=== PATIENT | female | born 1965 | race Caucasian/White ===

== ENCOUNTER 2024-06-16 07:44 | Inpatient (IN) | payer OTHER ==
[~2024-06-16] VITALS: Ht 160 cm; Wt 49.9 kg
[2024-06-16] MEDS: MORPHINE SULFATE 4 MG/ML INJ (FOR IV/IM USE) IV ONE ×2 (08:46→09:39)
[2024-06-16 11:22] LABS: HEMOGLOBIN 11.9 g/dL (12.0-16.0); MEAN CORPUSCULAR HEMOGLOBIN 31.1 pg (28.0-32.0); MEAN CORPUSCULAR HGB CONC 32.1 g/dL (31.0-37.0); MEAN CORPUSCULAR VOLUME 96.9 fL (81.0-99.0); PLATELET 368 x1000/uL (130-400); RED BLOOD CELL COUNT 3.82 mill/uL (4.2-5.4); RED CELL DISTRIBUTION WIDTH 13.4 % (11.6-14.6); WHITE BLOOD COUNT 10.4 x1000/uL (4.5-11.0)
[2024-06-16 11:29] LABS: CHLORIDE 116 mEq/L (98-107); POTASSIUM 4.4 mEq/L (3.5-5.1); SODIUM 140 mEq/L (136-145)
[2024-06-16 11:30] LABS: CARBON DIOXIDE 21 mEq/L (21-32)
[2024-06-16 11:31] LABS: CALCIUM 8.2 mg/dL (8.7-10.4)
[2024-06-16 11:33] LABS: INR 0.9; PARTIAL THROMBOPLASTIN TIME 22.8 sec (23.4-31.0)
[2024-06-16 11:35] LABS: CREATININE 0.7 mg/dL (0.6-1.0); GLUCOSE 87 mg/dL (70-105)
[2024-06-16 11:36] LABS: UREA NITROGEN BLOOD 14 mg/dL (9-23)
[2024-06-16] MEDS: HYDROMORPHONE HCL/PF 2MG/ML INJ IV NR ×2 (11:47→22:56)
[2024-06-16] MEDS ORDERED: GUAIFENESIN 200MG/10ML SUGAR FREE UDC PO PRN (13:15)
[2024-06-16] MEDS ORDERED: DOCUSATE SODIUM 100MG CAPSULE PO PRN (13:15)
[2024-06-16] MEDS ORDERED: ACETAMINOPHEN 650MG/20.3ML UDC GT PRN ×2 (13:15)
[2024-06-16] MEDS ORDERED: CLONIDINE 0.1MG TABLET PO PRN (13:15)
[2024-06-16] MEDS ORDERED: MAGNESIUM/ALUMINUM HYDROXIDE/SIMETHICONE 30ML UDC PO PRN (13:15)
[2024-06-16] MEDS ORDERED: IPRATROPIUM/ALBUTEROL 0.5-3(2.5)MG/3ML NEB HHN PRN (13:15)
[2024-06-16] MEDS ORDERED: ONDANSETRON HCL 4MG/2ML INJ IV PRN (13:15)
[2024-06-16] MEDS: MORPHINE SULFATE 2 MG/ML INJ (NOT FOR IM USE) IV PRN (14:09)
[2024-06-16] MEDS ORDERED: OMEP20CA14 PO (14:27)
[2024-06-16] MEDS ORDERED: LISI10TA26 PO (14:27)
[2024-06-16] MEDS: HYDROCODONE/ACETAMINOPHEN 7.5/325MG TABLET PO PRN (15:30)
[2024-06-16] MEDS: OMEPRAZOLE 20MG CAPSULE EXTENDED RELEASE PO SCH (15:31)
[2024-06-16] MEDS: LISINOPRIL 10MG TABLET PO SCH (15:32)
[2024-06-16 16:37] LABS: TRIGLYCERIDE 144 mg/dL (0-150)
[2024-06-16 16:38] LABS: LACTATE DEHYDROGENASE 156 IU/L (120-246); LDL CHOLESTEROL 73 mg/dL (5-100)
[2024-06-16 16:39] LABS: ALANINE AMINOTRANSFERASE < 7 IU/L (10-49); ALBUMIN 3.2 g/dL (3.2-4.8); ASPARTATE AMINOTRANSFERASE 19 IU/L (<34); BILIRUBIN TOTAL 0.3 mg/dL (0.1-1.0); CHOLESTEROL 143 mg/dL (<200); CREATINE KINASE 49 IU/L (34-145); HDL CHOLESTEROL 49 mg/dL (>65); PHOSPHORUS 3.9 mg/dL (2.5-4.9); PROTEIN TOTAL 4.4 g/dL (6.0-8.3)
[2024-06-16 16:41] LABS: T4 FREE 0.89 ng/dL (0.89-1.76); THYROID STIMULATING HORMONE 6.38 uIU/mL (0.55-4.78)
[2024-06-16 16:46] LABS: BILIRUBIN DIRECT < 0.1 mg/dL (<=3.0); TROPONIN I HIGH SENSITIVITY < 4 ng/L (3.0-34)
[2024-06-16 17:45] VITALS: BP 137/81; PULSE 80; RESP 16; TEMP 97.3
[2024-06-16] MEDS: MAGNESIUM 2 G PREMIX 50 ML IV NR (19:59)
[2024-06-16 20:00] VITALS: BP_SYST 127; BP_SYST 137; BP_DIAS 76; BP_DIAS 81; PULSE 80; PULSE 83; RESP 18; RESP 19; TEMP 97.3; TEMP 98.1
[2024-06-16] MEDS: MORPHINE SULFATE 2 MG/ML INJ (NOT FOR IM USE) IV NR (20:33)
[2024-06-16] MEDS ORDERED: ALBU6.7H15 INH (20:37)
[2024-06-16] MEDS ORDERED: COLE1TAB2 PO (20:37)
[2024-06-16] MEDS ORDERED: VORT20TA MT (20:37)
[2024-06-16] MEDS ORDERED: ATEN-42 MT (20:37)
[2024-06-16] MEDS ORDERED: AMPH10TA MT (20:37)
[2024-06-16] MEDS ORDERED: TEMA15CA MT (20:37)
[2024-06-17] VITALS: BP 128/78; PULSE 90; RESP 19; TEMP 98.8
[2024-06-17 01:09] LABS: CREATINE KINASE 38 IU/L (34-145)
[2024-06-17] MEDS: MORPHINE SULFATE 4 MG/ML INJ (FOR IV/IM USE) IV PRN (01:32)
[2024-06-17 01:42] LABS: CLARITY URINE CLEAR (CLEAR); COLOR URINE YELLOW (YELLOW); GLUCOSE URINE NEGATIVE (NEGATIVE); KETONES URINE TRACE (NEGATIVE); LEUKOCYTE ESTERASE URINE NEGATIVE (NEGATIVE); NITRITE URINE NEGATIVE (NEGATIVE); OCCULT BLOOD URINE NEGATIVE (NEGATIVE); PH URINE 6.5 (4.5-8.0); PROTEIN URINE NEGATIVE (NEGATIVE); SPECIFIC GRAVITY URINE 1.016 (1.005-1.030); UROBILINOGEN URINE 0.2 E.U./dL (0.2-1.0)
[2024-06-17 01:53] LABS: *AMPHETAMINES SCREEN URINE PRESUMPTIVE POSITIVE (NEGATIVE); *BARBITURATES SCREEN URINE NEGATIVE (NEGATIVE); *BENZODIAZEPINES SCREEN URINE NEGATIVE (NEGATIVE); *COCAINE SCREEN URINE NEGATIVE (NEGATIVE); CANNABINOID URINE SCREEN NEGATIVE (NEGATIVE); METHADONE URINE SCREEN NEGATIVE (NEGATIVE); OPIATES URINE SCREEN PRESUMPTIVE POSITIVE (NEGATIVE); PHENCYCLIDINE URINE SCREEN NEGATIVE (NEGATIVE)
[2024-06-17 04:00] VITALS: BP 106/74; PULSE 84; RESP 19; TEMP 96.7
[2024-06-17 06:39] LABS: BASOPHILS % 0.6 % (0.0-2.0); EOSINOPHILS % 5.1 % (0.0-5.0); HEMATOCRIT. 35.5 % (36.0-48.0); HEMOGLOBIN. 11.6 g/dL (12.0-16.0); LYMPHOCYTES % 18.1 % (20.0-50.0); MEAN CORPUSCULAR HGB CONC 32.7 g/dL (31.0-37.0); MEAN CORPUSCULAR VOLUME 94.9 fL (81.0-99.0); MEAN PLATELET VOLUME 7.8 fl (7.4-10.4); MONOCYTES % 7.2 % (2.0-8.0); PLATELET 334 x1000/uL (130-400); RED BLOOD CELL COUNT 3.75 mill/uL (4.2-5.4); RED CELL DISTRIBUTION WIDTH 13.1 % (11.6-14.6); WHITE BLOOD COUNT 7.5 x1000/uL (4.5-11.0)
[2024-06-17 06:46] LABS: CALCIUM 8.3 mg/dL (8.7-10.4); CARBON DIOXIDE 20 mEq/L (21-32); CHLORIDE 113 mEq/L (98-107); SODIUM 140 mEq/L (136-145)
[2024-06-17 06:53] LABS: CREATININE 0.5 mg/dL (0.6-1.0); GLUCOSE 105 mg/dL (70-105); UREA NITROGEN BLOOD 12 mg/dL (9-23)
[2024-06-17 08:00] VITALS: BP 106/68; PULSE 84; RESP 19; TEMP 98.1
[2024-06-17] MEDS ORDERED: POLYMYXIN B SULFATE 500000 UNITS/VIAL ONE (09:44)
[2024-06-17] MEDS ORDERED: VANCOMYCIN HCL 1GM VIAL ONE (09:44)
[2024-06-17] MEDS ORDERED: LIDOCAINE HCL/EPINEPHRINE 1%-EPI 1:100,000 20 ML VIAL ONE (09:44)
[2024-06-17] MEDS ORDERED: SKIN ADHESIVE 0.7 GM EA TOP ONE ×2 (11:39)
[2024-06-17 12:00] VITALS: BP 122/90; PULSE 94; RESP 19; TEMP 97.5
[2024-06-17] MEDS ORDERED: PROPOFOL 200MG/20ML VIAL IV ONE (12:42)
[2024-06-17] MEDS ORDERED: LIDOCAINE HCL 1% 10 MG/ML 10ML VIAL ONE (12:42)
[2024-06-17] MEDS ORDERED: FENTANYL CITRATE/PF 50MCG/ML 2ML VIAL ONE ×2 (12:43→13:46)
[2024-06-17] MEDS ORDERED: MIDAZOLAM HCL 2 MG/2 ML VIAL ONE (12:43)
[2024-06-17] MEDS ORDERED: DEXAMETHASONE 4MG/ML 1ML VIAL ONE (13:05)
[2024-06-17] MEDS ORDERED: CEFAZOLIN SODIUM 1000MG/VIAL ONE (13:05)
[2024-06-17] MEDS ORDERED: EPHEDRINE SULFATE 50MG/ML VIAL ONE (13:05)
[2024-06-17] MEDS ORDERED: BUPIVACAINE HCL/PF 0.5% (5MG/ML) 10ML ONE (13:09)
[2024-06-17] MEDS ORDERED: ONDANSETRON HCL 4MG/2ML INJ IV PRN (13:45)
[2024-06-17] MEDS ORDERED: MEPERIDINE HCL/PF 25MG/ML CPJ IV PRN (14:00)
[2024-06-17] MEDS ORDERED: CEFAZOLIN SODIUM 2000MG/VIAL IJ SCH (14:00)
[2024-06-17] MEDS ORDERED: NALOXONE HCL 0.4MG/ML VIAL IV PRN (14:00)
[2024-06-17] MEDS ORDERED: HYDRALAZINE 20MG/ML VIAL IV ONE (14:00)
[2024-06-17] MEDS: HYDROMORPHONE HCL/PF 2MG/ML INJ IV PRN (14:02)
[2024-06-17] MEDS: HYDRALAZINE 20MG/ML VIAL IV ONE (14:42)
[2024-06-17] MEDS: ACETAMINOPHEN 1000MG/100ML 100 ML IV NR (15:22)
[2024-06-17] MEDS: ENOXAPARIN 40MG/0.4ML SYR SUBCUT SCH (19:19)
[2024-06-17 20:00] VITALS: BP 109/70; PULSE 88; RESP 20; TEMP 98.7
[2024-06-17] MEDS: CEFAZOLIN 2GM/100ML 100 ML IV SCH (22:28)
[2024-06-18] VITALS: BP 120/79; PULSE 84; RESP 18; TEMP 98.5
[2024-06-18 04:00] VITALS: BP 129/81; PULSE 85; RESP 19; TEMP 97.9
[2024-06-18 08:00] VITALS: BP 143/89; PULSE 91; RESP 17; TEMP 97
[2024-06-18 12:00] VITALS: BP 138/88; PULSE 86; RESP 17; TEMP 98
[2024-06-18] MEDS: MORPHINE SULFATE 4 MG/ML INJ (FOR IV/IM USE) IV PRN (14:31)
[2024-06-18 16:00] VITALS: BP 93/71; PULSE 84; RESP 18; TEMP 97.7
[2024-06-18 20:00] VITALS: BP 136/80; PULSE 79; RESP 19; TEMP 97.9
[2024-06-19] VITALS: BP 116/85; PULSE 84; RESP 19; TEMP 97.7
[2024-06-19 04:00] VITALS: BP 138/83; PULSE 80; RESP 18; TEMP 97.9
[2024-06-19 20:00] VITALS: BP 90/53; PULSE 77; RESP 18; TEMP 97.4
[2024-06-20] VITALS: BP 99/63; PULSE 82; RESP 20; TEMP 99.3
[2024-06-20 04:00] VITALS: BP 127/66; PULSE 84; RESP 19; TEMP 97.5
[2024-06-20 08:00] VITALS: BP 104/63; PULSE 114; RESP 20; TEMP 97.4
[2024-06-20 12:00] VITALS: BP 137/86; PULSE 79; RESP 20; TEMP 97.4
[2024-06-20] MEDS: PANTOPRAZOLE 40MG DR TABLET PO SCH (14:51)
[2024-06-20 16:00] VITALS: BP 138/80; PULSE 88; RESP 19; TEMP 97.3
[2024-06-20] MEDS: HYDROCODONE/ACETAMINOPHEN 10/325MG TABLET PO PRN (18:14)
[2024-06-20 20:00] VITALS: BP 105/61; PULSE 93; RESP 18; TEMP 97.7
[2024-06-20] MEDS ORDERED: MORPHINE SULFATE 2 MG/ML INJ (NOT FOR IM USE) IV PRN (20:00)
[2024-06-21] VITALS: BP 114/72; PULSE 90; RESP 18; TEMP 98.7
[2024-06-21 04:00] VITALS: BP 127/82; PULSE 88; RESP 18; TEMP 98.7
[2024-06-21 08:00] VITALS: BP 112/72; PULSE 93; RESP 17; TEMP 97.7
[2024-06-21 12:00] VITALS: BP 146/88; PULSE 81; RESP 17; TEMP 98.1
[2024-06-21] MEDS ORDERED: HYDR-4001 PO (12:00)
[2024-06-21 12:16] VITALS: BP 146/88; PULSE 81; TEMP 98.1; O2SAT 96
[2024-06-22] MEDS ORDERED: FAMOTIDINE 20MG TABLET PO SCH (09:00)
== END 2024-06-21 14:36 | disposition home or self-care (01) | DRG 482 ==
LOC: ER 08:19 → 5WST 12:26 → EDBEDREQTM 12:30 → EDBEDREQ 12:30 → 6EST 18:05
PROVIDERS: ADMIT Internal Medicine; ATTEND Internal Medicine
PROC: 0QS706Z Reposition Left Upper Femur with Intramedullary Internal Fixation Device, Open Approach (ICD-10-PCS; principal; 2024-06-17)
DX: S72.142A Displaced intertrochanteric fracture of left femur, initial encounter for closed fracture (principal); I10 Essential (primary) hypertension; D64.9 Anemia, unspecified; K21.9 Gastro-esophageal reflux disease without esophagitis; E83.42 Hypomagnesemia; E03.8 Other specified hypothyroidism; F41.9 Anxiety disorder, unspecified; F90.9 Attention-deficit hyperactivity disorder, unspecified type; F17.210 Nicotine dependence, cigarettes, uncomplicated; W01.0XXA Fall on same level from slipping, tripping and stumbling without subsequent striking against object, initial encounter; Z20.822 Contact with and (suspected) exposure to COVID-19; Y92.520 Airport as the place of occurrence of the external cause; Y99.0 Civilian activity done for income or pay; Z79.899 Other long term (current) drug therapy; Z85.528 Personal history of other malignant neoplasm of kidney; Z87.01 Personal history of pneumonia (recurrent); Z88.2 Allergy status to sulfonamides; Z90.49 Acquired absence of other specified parts of digestive tract; Z90.5 Acquired absence of kidney; Z90.711 Acquired absence of uterus with remaining cervical stump
CPT/HCPCS: 36415; 72192; 73502; 76000; 80048; 80061; 80076; 80305; 81003; 82306; 82330; 82550; 83615; 83735; 84100; 84439; 84443; 84481; 84484; 85025; 85027; 86850; 86900; 87426; 93005; 97110; 97116; 97162; 97166; 97535; 99285; J0360; J0690; J1100; J1170; J1650; J2250; J2270; J2704; J3010; J3370; J3475; J3490; J7030; C1713; J0131